=== PATIENT | female | born 1995 | race Two or more races ===

== ENCOUNTER 2022-05-02 12:00 | Emergency (ER) | payer OTHER ==
[~2022-05-02] VITALS: Ht 160 cm; Wt 112.0 kg
[2022-05-02] MEDS ORDERED: OZEMPIC1 MG/0.71 SQ (12:16)
[2022-05-02] MEDS ORDERED: BENLYSTA200 MG/1 M SQ (12:16)
[2022-05-02] MEDS ORDERED: RAYOS5 MG PO (12:18)
[2022-05-02] MEDS ORDERED: COZAAR50 MG PO (12:18)
[2022-05-02] MEDS ORDERED: PEPCID AC20 MG PO (12:18)
[2022-05-02] MEDS ORDERED: MYCOPHENOLATE500 MG PO (12:19)
[2022-05-02] MEDS ORDERED: MONDOXYNE NL100 MG PO (12:19)
[2022-05-02] MEDS ORDERED: HYDROXYCHLOROQ200 MG PO (12:21)
[2022-05-02] MEDS ORDERED: METHOTREXATE2.5 MG PO (12:22)
[2022-05-02] MEDS ORDERED: CELLCEPT500 MG (12:22)
== END 2022-05-02 13:41 | disposition home or self-care (01) ==
LOC: ER 12:00
DX: U07.1 COVID-19 (principal); R19.7 Diarrhea, unspecified

== ENCOUNTER 2022-05-02 14:08 | Outpatient (CLI) | payer OTHER ==
[~2022-05-02 14:08] MED LIST: BENLYSTA200 MG/1 M SQ; CELLCEPT500 MG; COZAAR50 MG PO; HYDROXYCHLOROQ200 MG PO; METHOTREXATE2.5 MG PO; MONDOXYNE NL100 MG PO; MYCOPHENOLATE500 MG PO; OZEMPIC1 MG/0.71 SQ; PEPCID AC20 MG PO; RAYOS5 MG PO
== END 2022-05-02 14:12 | disposition home or self-care (01) ==
LOC: LAB 14:08
PROVIDERS: ATTEND Internal Medicine Hematology & Oncology
DX: Z20.828 Contact with and (suspected) exposure to other viral communicable diseases (principal)

== ENCOUNTER 2022-05-08 07:57 | Outpatient (CLI) | payer OTHER | END 2022-05-08 08:02 | disposition home or self-care (01) | LOC: RAD 07:57 | PROVIDERS: ATTEND Otolaryngology | DX: R07.9 Chest pain, unspecified (principal) ==

== ENCOUNTER 2022-05-08 08:45 | Outpatient (CLI) | payer OTHER | END 2022-05-08 08:49 | disposition home or self-care (01) | LOC: LAB 08:45 | PROVIDERS: ATTEND Otolaryngology | DX: D64.9 Anemia, unspecified (principal); D68.9 Coagulation defect, unspecified; N39.0 Urinary tract infection, site not specified ==

== ENCOUNTER 2022-07-28 08:00 | Outpatient (CLI) | payer OTHER | END 2022-07-28 08:05 | disposition home or self-care (01) | LOC: PPH VACUNA 08:00 | PROVIDERS: ATTEND Emergency Medicine Pediatric Emergency Medicine | DX: Z23 Encounter for immunization (principal) ==

== ENCOUNTER 2022-09-01 12:11 | Emergency (ER) | payer OTHER ==
[~2022-09-01] VITALS: Ht 160 cm; Wt 114.8 kg
== END 2022-09-01 17:33 | disposition home or self-care (01) ==
LOC: ER 12:11
DX: K52.9 Noninfective gastroenteritis and colitis, unspecified (principal)

== ENCOUNTER 2022-10-16 09:53 | Emergency (ER) | payer OTHER ==
[~2022-10-16] VITALS: Ht 160 cm; Wt 116.6 kg
[2022-10-16] MEDS ORDERED: ONDANSETRON ODT4 MG PO (14:44)
[2022-10-16] MEDS ORDERED: PEPCID AC20 MG PO (14:44)
== END 2022-10-16 15:59 ==
LOC: ER 09:53
DX: K29.70 Gastritis, unspecified, without bleeding (principal); M32.9 Systemic lupus erythematosus, unspecified